=== PATIENT | female | born 1950 | race Caucasian/White ===

== ENCOUNTER 2018-12-14 10:35 | Day surgery (SDC) | payer MEDICARE, OTHER ==
[~2018-12-14] VITALS: Ht 149.9 cm; Wt 70.1 kg
[~2018-12-14 10:35] MED LIST: AMOCLA875 PO; B Complex1 EAC2 PO; CALCAVITD PO; CELE200 PO; DOCU100 PO; MECL12.5 PO; Multiple Vitam1 EAC1 PO; Prilosec40 MG PO; RANI150 PO
--- NOTE | 2018-12-14 11:34 | NUR ---
12/14/18 1134 Jacobo Cabrales 1ST IV ATTEMPT NO FLASH IN RIGHT AC , 2ND IV ATTEMPT RIGHT HAND VEIN BLEW.CMT
== END 2018-12-14 12:32 | disposition home or self-care (01) ==
LOC: ORSCSDS 10:35
PROVIDERS: Internal Medicine Gastroenterology
PROC: 0DBL8ZX Excision of Transverse Colon, Via Natural or Artificial Opening Endoscopic, Diagnostic (ICD-10-PCS; principal; 2018-12-14 12:00)
DX: Z12.11 Encounter for screening for malignant neoplasm of colon (principal); Z86.010 Personal history of colon polyps; D12.3 Benign neoplasm of transverse colon; K57.30 Diverticulosis of large intestine without perforation or abscess without bleeding; K64.8 Other hemorrhoids; E78.5 Hyperlipidemia, unspecified; K21.9 Gastro-esophageal reflux disease without esophagitis; E66.9 Obesity, unspecified; Z68.32 Body mass index [BMI] 32.0-32.9, adult; F17.210 Nicotine dependence, cigarettes, uncomplicated; Z79.899 Other long term (current) drug therapy
CPT/HCPCS: 88305; J2704; J7120

== ENCOUNTER 2019-07-07 13:41 | Day surgery (SDC) | payer MEDICARE, OTHER ==
[~2019-07-07] VITALS: Ht 152.4 cm; Wt 71.2 kg
[~2019-07-07 13:41] MED LIST changes: +WOMEN'S 50 PLU1 EACH
--- NOTE | 2019-07-07 16:37 | NUR ---
07/07/19 1637 E[facility]OY [facility] AT BEDSIDE TO ASSESS PATIENT D/T VOMITING WITH EXTUBATION. PER MDA, PATIENT IS OK TO EAT/DRINK AND DISCHARGE WHEN READY. PATIENT UP TO CHAIR, VSS, DRINKING COFFEE. AT BEDSIDE. PATIENT RATES PAIN 5-6/10 WHICH IS BASELINE FOR PATIENT, DECLINES ANY TREATMENT AT THIS TIME.
== END 2019-07-07 16:57 | disposition home or self-care (01) ==
LOC: ORSCSDS 13:41
PROVIDERS: Surgery
PROC: 0HBBXZZ Excision of Right Upper Arm Skin, External Approach (ICD-10-PCS; principal; 2019-07-07 15:15)
DX: L72.3 Sebaceous cyst (principal); E78.5 Hyperlipidemia, unspecified
CPT/HCPCS: 88304; J0690; J2250; J2704; J3010; J7120

== ENCOUNTER 2023-12-31 12:51 | Day surgery (SDC) | payer MEDICARE, OTHER ==
[~2023-12-31] VITALS: Ht 149.9 cm; Wt 71.8 kg
[~2023-12-31 12:51] MED LIST changes: +Lactated Ringer's 1,000 ML IV ONE; +propofoL 50 ML IV ONE
[2023-12-31] MEDS ORDERED: CIME400 (14:18)
[2023-12-31 14:28] VITALS: BP 138/66
[2023-12-31] MEDS ORDERED: Lactated Ringer's 1,000 ML IV ONE (15:01)
== END 2023-12-31 16:43 | disposition home or self-care (01) ==
LOC: ORSCSDS 12:51
PROVIDERS: Internal Medicine Gastroenterology
PROC: 0DBL8ZX Excision of Transverse Colon, Via Natural or Artificial Opening Endoscopic, Diagnostic (ICD-10-PCS; principal; 2023-12-31 14:00)
PROC: 0DB58ZX Excision of Esophagus, Via Natural or Artificial Opening Endoscopic, Diagnostic (ICD-10-PCS; principal; 2023-12-31 14:00)
PROC: 0DBN8ZX Excision of Sigmoid Colon, Via Natural or Artificial Opening Endoscopic, Diagnostic (ICD-10-PCS; principal; 2023-12-31 14:00)
PROC: 0DBK8ZX Excision of Ascending Colon, Via Natural or Artificial Opening Endoscopic, Diagnostic (ICD-10-PCS; principal; 2023-12-31 14:00)
DX: R13.10 Dysphagia, unspecified (principal); Z12.11 Encounter for screening for malignant neoplasm of colon; D12.2 Benign neoplasm of ascending colon; D12.3 Benign neoplasm of transverse colon; D12.5 Benign neoplasm of sigmoid colon; Z86.010 Personal history of colon polyps; F17.210 Nicotine dependence, cigarettes, uncomplicated; K21.00 Gastro-esophageal reflux disease with esophagitis, without bleeding
CPT/HCPCS: 88305; J2704; J7120

== ENCOUNTER 2024-11-06 18:35 | Emergency (ER) | payer MEDICARE, OTHER ==
[~2024-11-06] VITALS: Ht 149.9 cm; Wt 68.0 kg
[~2024-11-06 18:35] MED LIST changes: +CIME400; -Lactated Ringer's 1,000 ML IV ONE; -propofoL 50 ML IV ONE
[2024-11-06 18:51] VITALS: BP 146/66
== END 2024-11-06 21:44 | disposition home or self-care (01) ==
LOC: ER 18:35
DX: S83.92XA Sprain of unspecified site of left knee, initial encounter (principal); M25.551 Pain in right hip; Z90.711 Acquired absence of uterus with remaining cervical stump; Z79.899 Other long term (current) drug therapy; W19.XXXA Unspecified fall, initial encounter
CPT/HCPCS: 73502; 73562-LT; 99283-25